=== PATIENT | female | born 1930 | race Two or more races ===

== ENCOUNTER 2017-04-06 10:50 | Inpatient (IN) | payer MEDICARE, MEDICAID ==
[~2017-04-06] VITALS: Ht 152.4 cm; Wt 51.3 kg
--- NOTE | 2017-04-06 10:55 | NUR ---
BBRA 87 FROM [facility] FOR GLF LEFT HIP FX +SHORTENING. 4 MORPHINE GIVEN IN FIELD WITH RELIEF. IV PRESENT AND INTACT ON LEFA, 20 G. PATIENT IS ALERT, BREATHING EVEN AND UNLABORED. NO SOB. VITALS STABLE. SAFETY AND COMFORT MEASURES IN PLACE. AWAITING MD ORDERS.
[2017-04-06] MEDS ORDERED: ONDANSETRON HCL/PF 4 MG/2 ML VIAL IVP ONE (11:00)
[2017-04-06] MEDS ORDERED: ONDANSETRON HCL/PF 4 MG/2 ML VIAL ONE (11:07)
[2017-04-06 11:20] LABS: BASOPHILS # (AUTO) 0.1 /CMM (0.0-0.2); BASOPHILS % (AUTO) 0.9 % (0.0-2.0); EOSINOPHILS # (AUTO) 0.2 /CMM (0.0-0.7); EOSINOPHILS % (AUTO) 2.6 % (0.0-6.0); HEMATOCRIT 40 % (33-45); HEMOGLOBIN 13.6 g/dL (11.5-14.8); MEAN CORPUSCULAR HEMOGLOBIN 32 PG (26.0-33.0); MEAN CORPUSCULAR HGB CONC 34 g/dl (31.0-36.0); MEAN CORPUSCULAR VOLUME 93 fL (82-100); MONOCYTES # (AUTO) 0.6 /CMM (0.1-1.30); NEUTROPHILS # (AUTO) 5.3 /CMM (1.8-8.9); NEUTROPHILS % (AUTO) 65.5 % (43.0-81.0); PLATELET COUNT (AUTO) 253 /CMM (150-450); RDW COEFFICIENT OF VARIATION 13.1 (11.5-15.0); WHITE BLOOD COUNT (AUTO) 8.2 K/uL (4.3-11.0)
--- NOTE | 2017-04-06 11:21 | NUR ---
CALLED NURSING SUP. FOR MS BED, SAID SHE WILL CALL ME BACK
[2017-04-06] MEDS ORDERED: METO-356 PO (11:23)
[2017-04-06] MEDS ORDERED: ERGO500014 PO (11:23)
[2017-04-06] MEDS ORDERED: AMLO5TAB2 PO (11:23)
[2017-04-06] MEDS ORDERED: ESCI20TA PO (11:23)
[2017-04-06] MEDS ORDERED: LEVO100T PO (11:23)
[2017-04-06] MEDS ORDERED: APIX2.5T PO (11:23)
[2017-04-06] MEDS ORDERED: DENO60DI IM (11:23)
[2017-04-06] MEDS ORDERED: ACET-2605 PO (11:25)
[2017-04-06] MEDS ORDERED: NITR0.4T48 SL (11:25)
[2017-04-06 11:34] LABS: CALCIUM, SERUM 8.7 mg/dL (8.5-10.1); CARBON DIOXIDE 27 mmol/L (21-32); CHLORIDE 101 mmol/L (98-107); CREATININE 0.5 mg/dL (0.6-1.3); GLUCOSE 124 mg/dL (74-106); INR 1.02 (0.85-1.15); POTASSIUM 3.5 mmol/L (3.5-5.1); SODIUM SERUM 136 mmol/L (136-145); UREA NITROGEN, BLOOD 17 mg/dL (7-18)
[2017-04-06 11:36] LABS: ALANINE AMINOTRANSFERASE 22 U/L (12-78); ALBUMIN 3.5 g/dL (3.4-5.0); ALKALINE PHOSPHATASE 77 U/L (46-116); ASPARTATE AMINOTRANSFERASE 24 U/L (15-37); BILIRUBIN,DIRECT 0.2 mg/dL (0.0-0.2); BILIRUBIN,TOTAL 0.9 mg/dL (0.2-1.0); TOTAL PROTEIN, SERUM 7.2 g/dL (6.4-8.2)
[2017-04-06 11:38] LABS: TROPONIN I < 0.017 ng/mL (0.00-0.056)
--- NOTE | 2017-04-06 11:48 | NUR ---
HUANG CATH INSERTED, URINE SENT TO LAB
--- NOTE | 2017-04-06 11:49 | NUR ---
ZEV VU, YASMEEN MORFIN OPERATION SPECIALIST
--- NOTE | 2017-04-06 11:50 | NUR ---
CALLED JOE FOR ADMISSION, SAID HE WILL COME HERE
--- NOTE | 2017-04-06 11:56 | NUR ---
MS 310-1
[2017-04-06] MEDS ORDERED: MORPHINE SULFATE INJ 2 MG/ML DISP.SYRIN IV ONE (12:00)
[2017-04-06] MEDS ORDERED: MORPHINE SULFATE INJ 4 MG/ML DISP.SYRIN ONE (12:02)
--- NOTE | 2017-04-06 12:05 | NUR ---
REPORT GIVEN TO ETHAN TEMPLE FOR MARCELLA UPON ADMISSION.
--- NOTE | 2017-04-06 12:12 | NUR ---
PATIENT REFUSED MORPHINE, DESPITE STATING SHE IS IN PAIN AT THIS TIME.
[2017-04-06 12:14] LABS: APPEARANCE,URINE Clear (CLEAR); BILIRUBIN,URINE Negative (NEGATIVE); BLOOD, URINE Trace-intact Ery/uL (NEGATIVE); COLOR,URINE Yellow (YELLOW); KETONES,URINE Negative (NEGATIVE); LEUKOCYTE ESTERASE ,URINE Negative (NEGATIVE); NITRITE, URINE Negative (NEGATIVE); PH,URINE 6.5 (5.0-8.0); PROTEIN,URINE Negative (NEGATIVE); UGLUCOSE Negative (NEGATIVE); UROBILINOGEN,URINE 0.2 EU/dL (0.2)
[2017-04-06 12:20] LABS: BACTERIA,URINE None seen /HPF (None Seen); SQUAMOUS EPITHELIAL CELL,UR Few /HPF (None Seen); WBC,URINE 0-2 /HPF (0-3)
--- NOTE | 2017-04-06 12:20 | NUR ---
PATIENT TRANSPORTED TO [facility][note 3] VIA STRETCHER. RNETHAN TO PROVIDE MARCELLA.
[2017-04-06] MEDS ORDERED: MORPHINE SULFATE INJ 2 MG/ML DISP.SYRIN IV PRN (12:30)
[2017-04-06] MEDS ORDERED: ACETAMINOPHEN 325 MG TABLET PO PRN (12:30)
[2017-04-06] MEDS ORDERED: PANTOPRAZOLE 40 MG VIAL IV SCH (12:30)
[2017-04-06] MEDS ORDERED: ENOXAPARIN SODIUM 40 MG/0.4 ML DISP.SYRIN SQ SCH (12:30)
[2017-04-06] MEDS ORDERED: MAG HYDROX/AL HYDROX/SIMETH 30 ML UDC PO PRN (12:30)
--- NOTE | 2017-04-06 12:30 | NUR ---
MSRN OPENING NOTES PT RECEIVED A&0X3 WITH DAUGHTER LYNDSAY AND SON CHAR AT BEDSIDE. PT TOLERATING ROOM AIR WITHOUT SOB. PT REPORTS NO PAIN AT THIS TIME UNLESS MOVED. PT WITH IVC AT L FA INTACT AND OPERATIONAL. ORDERS COMMENCED. PT HX PROVIDED BY PT AND DAUGHTER. BELONGINGS FORM ACCURATE. PT WITH EXISTING L SIDED WEAKNESS R/T TIA. PT BED IN LOWEST LOCKED POSITION WITH HANDRAILSX2 AND CALL BAUGH WITHIN REACH. PT WITHOUT CONCERN OR COMPLAINT AT THIS TIME. PT LEFT WITH EMT TRANSPORT. WILL CONTINUE TO MONITOR.
--- NOTE | 2017-04-06 13:00 | NUR ---
MSRN NOTES. PT REFUSING ENOXAPARIN R/T TAKING BLOOD THINNERS THIS AM. PT EDUCATION PROVIDED AND MD NOTIFIED, AWAITING RESPONSE.
[2017-04-06] MEDS: ENOXAPARIN SODIUM 60 MG/0.6 ML DISP.SYRIN SQ SCH ×3 (14:00→18:59)
[2017-04-06] MEDS: IV NS 0.9% 1,000 ML IV PRN (14:40)
--- NOTE | 2017-04-06 15:00 | NUR ---
MSRN. CORMIER REQUESTING ENOXAPARIN TIME CHANGE, ORDER PLACED. PHARMACY AWARE.
[2017-04-06 15:36] LABS: THYROID STIMULATING HORMONE 7.172 uIU/mL (0.358-3.74)
[2017-04-06 15:37] VITALS: BP 157/99
[2017-04-06 16:00] VITALS: BP 143/74
[2017-04-06 16:49] VITALS: BP 143/74
--- NOTE | 2017-04-06 18:36 | NUR ---
MSRN CLOSING NOTES. PT REMAINS A&0X3, TOLERATING ROOM AIR AND REPORTS MINOR PAIN AT REST, CURRENTLY REFUSING ANALGESIA. PT WITH IVC AT L FA INTACT AND OPERATIONAL WITH NS 75ML. BED IN LOWEST LOCKED POSITION WITH HANDRAILSX2 AND CALL BUAGH WITHIN REACH. ALL DAY NURSE DUTIES ATTENDED TO. PT WITHOUT CONCERN OR COMPLAINT AT THIS TIME. WILL ENDORSE TO NIGHT NURSE.
--- NOTE | 2017-04-06 18:47 | NUR ---
PT CONTACTS. DAUGHTER - LYNDSAY [phone]. SON - CHAR [phone].
[2017-04-06 20:00] VITALS: BP_SYST 141; BP_DIAS 76; BP_DIAS 78
--- NOTE | 2017-04-06 21:34 | NUR ---
MS RN OPENING NOTES: PATIENT IN BED, AOX3, ON ROOM AIR, BREATHING EVEN AND UNLABORED. APPEARS CALM AND IN NO DISTRESS. DENIES PAIN AT THIS TIME, BUT STATES THAT SHE FEELS PAIN OVER HER LEFT HIP ONLY WHILE MOVING. PIV OVER LFA G 20 INTACT AND PATENT, INFUSING WELL WITH NS RUNNING AT 75 ML/HR. HUANG CATHETER IN PLACE DRAINING CLEAR YELLOW URINE. PROVIDED FOR COMFORT AND SAFETY. BED IN LOWEST AND LOCKED POSITION. SIDERAILS UP X 3. WILL CONT TO MONITOR.
[2017-04-07] MEDS: IV NS 0.9% 1,000 ML IV PRN (04:46)
--- NOTE | 2017-04-07 06:41 | NUR ---
RN NOTES: ADMINISTERED MORPHINE 4 MG IV PRN FOR 8-9/10 PAIN OVER LEFT HIP AND LEFT KNEE. POSITIONED PATIENT FOR COMFORT.
[2017-04-07 06:45] LABS: BASOPHILS % (AUTO) 0.3 % (0.0-2.0); HEMATOCRIT 29 % (33-45); MEAN CORPUSCULAR HEMOGLOBIN 33 PG (26.0-33.0); MEAN CORPUSCULAR HGB CONC 35 g/dl (31.0-36.0); MEAN CORPUSCULAR VOLUME 95 fL (82-100); MONOCYTES # (AUTO) 0.8 /CMM (0.1-1.30); MONOCYTES % (AUTO) 8.3 % (2.0-12.0); NEUTROPHILS # (AUTO) 8.1 /CMM (1.8-8.9); NEUTROPHILS % (AUTO) 81.4 % (43.0-81.0); PLATELET COUNT (AUTO) 193 /CMM (150-450); RDW COEFFICIENT OF VARIATION 14.3 (11.5-15.0); RED BLOOD CELL COUNT(AUTO) 3.08 MIL/uL (4.0-5.2)
[2017-04-07 06:57] LABS: CALCIUM, SERUM 7.1 mg/dL (8.5-10.1); CARBON DIOXIDE 26 mmol/L (21-32); CHLORIDE 98 mmol/L (98-107); CREATININE 0.4 mg/dL (0.6-1.3); GLUCOSE 143 mg/dL (74-106); POTASSIUM 3.4 mmol/L (3.5-5.1); SODIUM SERUM 131 mmol/L (136-145); UREA NITROGEN, BLOOD 10 mg/dL (7-18)
[2017-04-07 06:58] LABS: MAGNESIUM 1.7 mg/dL (1.8-2.4); PHOSPHORUS 2.5 mg/dL (2.5-4.9)
--- NOTE | 2017-04-07 07:01 | NUR ---
MS RN CLOSING NOTES: PATIENT IN BED, AOX3, ON ROOM AIR, BREATHING EVEN AND UNLABORED. APPEARS CALM AND IN NO DISTRESS. DENIES PAIN WHEN NOT MOVING. PIV OVER LFA G 20 INTACT AND INFUSING WELL WITH NS RUNNING AT 75 ML/HR. PROVIDED FOR COMFORT AND SAFETY. BED IN LOWEST AND LOCKED POSITION, SIDERAILS UP X 3, CALL LIGHT WITHIN REACH. WILL ENDORSE TO AM RN FOR MARCELLA.
[2017-04-07 07:28] LABS: CHOLESTEROL 144 mg/dL (<200); HDL CHOLESTEROL 87 mg/dL (40-60); LDL 62 mg/dL (0-99); TRIGLYCERIDES 32 mg/dL (30-150)
--- NOTE | 2017-04-07 08:00 | NUR ---
MED SURG 3 RN AM NOTES RECEIVED PATIENT AWAKE AND ALERT IN BED. ALERT AND ORIENTED X 3. VITAL SIGNS STABLE, RESPIRATIONS EVEN AND UNLABORED, ON ROOM AIR WITH OXYGEN SATURATION OF 95%. LEFT FOREARM 20G INTACT AND PATENT, INFUSING 0.9NS AT 75ML/HR WITHOUT COMPLICATION. HUANG CATHETER PATENT WITH CLEAR YELLOW URINE FLOWING FREELY. PATIENT DENIES ANY PAIN OR DISTRESS. BED IN LOW POSITION WITH SIDE RAILS UP X2, CALL LIGHT WITHIN REACH.
[2017-04-07] MEDS: POTASSIUM CHLORIDE 20 MEQ TAB.PRT.SR PO SCH ×2 (08:10→09:33)
[2017-04-07] MEDS: Magnesium 1GM/D5W 100ML PREMIX 100 ML IV SCH ×2 (08:10→09:33)
[2017-04-07 08:21] LABS: THYROID STIMULATING HORMONE 1.778 uIU/mL (0.358-3.74)
[2017-04-07 08:29] LABS: IRON, SERUM 76 ug/dl (50-175); TOTAL IRON BINDING CAPACITY 300 ug/dl (250-450)
[2017-04-07 09:57] LABS: FERRITIN 30 ng/mL (8-388)
[2017-04-07] MEDS ORDERED: HYDROMORPHONE 1 MG/1 ML DISP.SYRIN IV PRN (10:30)
--- NOTE | 2017-04-07 17:21 | NUR ---
PATIENT REFUSED DINNER TRAY, STATED SHE DOESN'T LIKE THE SMELL OF THE FOOD AND IT MAKES HER NOT WANT TO EAT. I OFFERED THE PATIENT ALTERNATIVE OPTIONS FOR DINNER AND SHE CONTINUED TO REFUSE AND JUST ASKED TO HAVE THE DINNER TRAY REMOVED FROM HER ROOM SO SHE WOULD NOT HAVE TO SMELL THE FOOD ANY LONGER. PATIENT NOW RESTING IN BED. VITAL SIGNS STABLE, RESPIRATIONS EVEN AND UNLABORED. PATIENT HAS NO SIGNS OR SYMPTOMS OF DISTRESS. BED IN LOW POSITION AND LOCKED, SIDE RAILS UP X 2 AND CALL LIGHT WITHIN REACH. Addendum: 04/07/17 at 1724 by MANUEL FOSTER RN MAVERICK NOTES
--- NOTE | 2017-04-07 18:29 | NUR ---
SUPERVISOR MILL 3 CLOSING NOTE PATIENT IN BED RESTING AND EASILY AROUSED. ALERT AND ORIENTED X 3. VITAL SIGNS STABLE, RESPIRATIONS EVEN AND UNLABORED ON ROOM AIR. LEFT FOREARM 20G INTACT AND PATENT, FLUSHES EASILY, NO SIGNS OR SYMPTOMS OF COMPLICATIONS. HUANG CATHETER PATENT WITH CLEAR YELLOW URINE FLOWING FREELY. ALL NEEDS MET. NO SIGNS OR SYMPTOMS OF PAIN OR DISTRESS. BED IN LOW POSITION WITH SIDE RAILS UP X2, CALL LIGHT WITHIN REACH.
[2017-04-07] MEDS: ENOXAPARIN SODIUM 60 MG/0.6 ML DISP.SYRIN SQ SCH (18:34)
--- NOTE | 2017-04-07 19:56 | NUR ---
MS/RN OPENING NOTES PATIENT IN BED, RESTING COMFORTABLY IN BED. VERBALIZE NEEDS, REPORTED WANT TO SLEEP AND KEPT ROOM COMFORTABLE. SKIN WARM TO TOUCH, ON HUANG CATHETER, DRAINING URINE, IV ON LFA 20GAUGE, WILL MONITOR, BED IN LOCK POSITION CALL LIGHTS WITHIN REACH. WILL CONTINUE TO MONITOR.
[2017-04-07 20:00] VITALS: BP 143/71
--- NOTE | 2017-04-07 23:20 | NUR ---
MS/RN NOTES GATE GUARD MD PAN WAS CONTACTED AND REPORTED HOME MEDICATION NOT YET RECONCILED, SAID TO FOLLOW UP IN AM FOR AM RECON.
[2017-04-08] VITALS (9 sets, daily range): BP systolic 123–161; BP diastolic 62–91
--- NOTE | 2017-04-08 06:36 | NUR ---
311-1 ms/rn notes Patient in bed, able to sleep during the night, repostion for comfort, monitored for pain, able to verbalize needs. Call lights within reach, bed in lock posiotn, keep skin intact and dry. will endorse to am rn for maia.
--- NOTE | 2017-04-08 07:05 | NUR ---
RN NOTES PT IS LAYING DOWN IN BED, RESTING COMFORTABLY. PT ON RA, RESPIRATIONS ARE EVEN AND UNLABORED. IV ON LFA INTACT AND SL. SAFETY MEASURES ARE IN PLACE, CALL LIGHT IS IN REACH. WILL CONTINUE TO MONITOR.
[2017-04-08 07:23] LABS: BASOPHILS % (AUTO) 0.1 % (0.0-2.0); HEMATOCRIT 25 % (33-45); HEMOGLOBIN 8.4 g/dL (11.5-14.8); LYMPHOCYTES # (AUTO) 1.3 /CMM (0.8-4.8); LYMPHOCYTES % (AUTO) 10.6 % (20.0-44.0); MEAN CORPUSCULAR HEMOGLOBIN 33 PG (26.0-33.0); MEAN CORPUSCULAR HGB CONC 34 g/dl (31.0-36.0); MEAN CORPUSCULAR VOLUME 95 fL (82-100); MONOCYTES # (AUTO) 1.5 /CMM (0.1-1.30); MONOCYTES % (AUTO) 11.9 % (2.0-12.0); NEUTROPHILS # (AUTO) 9.7 /CMM (1.8-8.9); NEUTROPHILS % (AUTO) 77.4 % (43.0-81.0); PLATELET COUNT (AUTO) 162 /CMM (150-450); RDW COEFFICIENT OF VARIATION 14.2 (11.5-15.0); RED BLOOD CELL COUNT(AUTO) 2.59 MIL/uL (4.0-5.2); WHITE BLOOD COUNT (AUTO) 12.6 K/uL (4.3-11.0)
[2017-04-08 07:50] LABS: ALANINE AMINOTRANSFERASE 15 U/L (12-78); ALBUMIN 2.4 g/dL (3.4-5.0); ALKALINE PHOSPHATASE 47 U/L (46-116); ASPARTATE AMINOTRANSFERASE 18 U/L (15-37); BILIRUBIN,TOTAL 1.4 mg/dL (0.2-1.0); CALCIUM, SERUM 7.2 mg/dL (8.5-10.1); CARBON DIOXIDE 24 mmol/L (21-32); CHLORIDE 92 mmol/L (98-107); CREATININE 0.5 mg/dL (0.6-1.3); GLUCOSE 136 mg/dL (74-106); MAGNESIUM 1.9 mg/dL (1.8-2.4); PHOSPHORUS 1.5 mg/dL (2.5-4.9); TOTAL PROTEIN, SERUM 5.6 g/dL (6.4-8.2); UREA NITROGEN, BLOOD 11 mg/dL (7-18)
[2017-04-08 08:16] LABS: POTASSIUM 3.9 mmol/L (3.5-5.1)
[2017-04-08 08:46] LABS: SODIUM SERUM 123 mmol/L (136-145)
[2017-04-08] MEDS ORDERED: SODIUM CHLORIDE 1000 MG TABLET.SOL PO ONE (10:00)
[2017-04-08] MEDS ORDERED: IV NS 0.9% 1,000 ML IV PRN ×2 (10:00→11:00)
[2017-04-08] MEDS: MAGNESIUM HYDROXIDE 30 ML UDC PO PRN (10:42)
[2017-04-08] MEDS ORDERED: K PHOS NEUTRAL 250 MG TABLET PO ONE (13:00)
--- NOTE | 2017-04-08 13:15 | NUR ---
RN NOTES HGB DROPPED FROM 13.6 TO 8.4 WITHIN 48 HOURS, MD SUSPECTS POSSIBLE BLEED DUE TO HIP FRACTURE. 1 UNIT OF BLOOD TRANSFUSING NOW, PRIOR TO SURGERY TOMORROW. VITAL SIGNS ARE WNL, NO SIGNS OF REACTION TO BLOOD.
[2017-04-08 18:12] LABS: HEMOGLOBIN 10.4 g/dL (11.5-14.8)
--- NOTE | 2017-04-08 18:38 | NUR ---
RN NOTES PT IS RESTING IN BED COMFORTABLY. IV ON LFA AND RFA INTACT AND SL. BLOOD TRANSFUSION GIVEN ORDERED WITH NO REACTION, H/H REDRAWN. VITAL SIGNS ARE WNL, NO SIGNS OF DISTRESS NOTED. HUANG CATHETER IS INTACT AND DRAINING, 700ML OUTPUT. SAFETY MEASURES ARE IN PLACE, CALL LIGHT IS IN REACH. WILL ENDORSE TO CARTON STAPLER RN FOR CONTINUITY OF CARE.
[2017-04-08] MEDS: ENOXAPARIN SODIUM 60 MG/0.6 ML DISP.SYRIN SQ SCH (19:00)
--- NOTE | 2017-04-08 19:34 | NUR ---
Ms/rn opening notes Patient in bed, awake, able to verbalize needs, nopain, resting comfortably in bed, skin warm to touch , on room air, call lights within reach, bed in lock position, attend to needs, will keep comfortable, will continue to monitor, iv fluids running on rfa at 75ml/hr, iv site on right and left forearm, with no s/s ooi infiltration,
--- NOTE | 2017-04-08 20:27 | NUR ---
Ms/Rn notes Per md order last 04/08/17 recent progress note to hold hcristina heath rn informed communicated .
[2017-04-09] VITALS (8 sets, daily range): BP systolic 132–148; BP diastolic 73–89
[2017-04-09 06:52] LABS: BASOPHILS % (AUTO) 0.1 % (0.0-2.0); EOSINOPHILS % (AUTO) 0.1 % (0.0-6.0); HEMATOCRIT 31 % (33-45); HEMOGLOBIN 10.6 g/dL (11.5-14.8); LYMPHOCYTES # (AUTO) 1.3 /CMM (0.8-4.8); LYMPHOCYTES % (AUTO) 10.4 % (20.0-44.0); MEAN CORPUSCULAR HEMOGLOBIN 33 PG (26.0-33.0); MEAN CORPUSCULAR HGB CONC 35 g/dl (31.0-36.0); MEAN CORPUSCULAR VOLUME 94 fL (82-100); MONOCYTES # (AUTO) 1.3 /CMM (0.1-1.30); MONOCYTES % (AUTO) 10.8 % (2.0-12.0); NEUTROPHILS # (AUTO) 9.5 /CMM (1.8-8.9); NEUTROPHILS % (AUTO) 78.6 % (43.0-81.0); PLATELET COUNT (AUTO) 158 /CMM (150-450); RDW COEFFICIENT OF VARIATION 14.3 (11.5-15.0); RED BLOOD CELL COUNT(AUTO) 3.25 MIL/uL (4.0-5.2); WHITE BLOOD COUNT (AUTO) 12.1 K/uL (4.3-11.0)
--- NOTE | 2017-04-09 06:57 | NUR ---
MS/rn notes Patient in bed, assisted for comfort, able to verbalize needs, coopertaive to care, on npo after mn for surgery, skin warm to touch, call lights within reach, will continue to monitor. Call lights within reach, bed in lock position, Iv sites on bilateraal foream, patent.bed in lock position. Will endorse with am rn for maia.
[2017-04-09 07:11] LABS: INR 0.93 (0.87-1.13)
[2017-04-09 07:29] LABS: CALCIUM, SERUM 6.9 mg/dL (8.5-10.1); CARBON DIOXIDE 24 mmol/L (21-32); CHLORIDE 89 mmol/L (98-107); CREATININE 0.3 mg/dL (0.6-1.3); GLUCOSE 111 mg/dL (74-106); PHOSPHORUS 1.6 mg/dL (2.5-4.9); POTASSIUM 3.6 mmol/L (3.5-5.1); SODIUM SERUM 122 mmol/L (136-145); UREA NITROGEN, BLOOD 6 mg/dL (7-18)
--- NOTE | 2017-04-09 08:00 | NUR ---
MSRN OPENING NOTES. PT RECEIVED A&0X3. PT TOLERATING ROOM AIR WITHOUT SOB AND SAO2 WNL. PT DENIES PAIN. PT SURGERY CANCELLED R/T LAB VALUES. PT REMOVED FROM NPO AND CONTINUED ON MD MARY LOU TO ORDER REPLACEMENTS. PT WITH IVCX2, L FA G#20 AND R FA G#20 BOTH INTACT AND SALINE FLUSH PATENT. PT BRIEFED ON TODAY'S POC AND PT IS WITHOUT CONCERN OR COMPLIANT AT THIS TIME.
[2017-04-09] MEDS ORDERED: NEUTRA PHOS 1 POWD.PACKET PO ONE (08:30)
[2017-04-09 09:09] LABS: IRON, SERUM 27 ug/dl (50-175); TOTAL IRON BINDING CAPACITY 261 ug/dl (250-450)
[2017-04-09] MEDS: ONDANSETRON HCL/PF 4 MG/2 ML VIAL IVP PRN ×2 (09:10→15:29)
[2017-04-09] MEDS ORDERED: Calcium Gluconate 1GM/10ML 4.65 MEQ in IV NS 0.9% 50 ML IV ONE (13:30)
[2017-04-09] MEDS: SODIUM CHLORIDE 1000 MG TABLET.SOL PO SCH ×2 (14:12→17:28)
[2017-04-09] MEDS: MAGNESIUM HYDROXIDE 30 ML UDC PO PRN (15:38)
--- NOTE | 2017-04-09 19:04 | NUR ---
MSRN OPENING NOTES. PT REMAINS A&0X3 WITH FAMILY AT BEDSIDE. PT TOLERATING ROOM AIR WITHOUT SOB AND SAO2 WNL. PT DENIES PAIN. PT WITH IVCX2, L FA G#20 AND R FA G#20 BOTH INTACT AND SL. BED IN LOWEST LOCKED POSITION WITH HANDRAILSX4 AND CALL BAUGH WITHIN REACH. ALL DAY NURSE DUTIES ATTENDED TO PT IS WITHOUT CONCERN OR COMPLAINT AT THIS TIME. WILL ENDORSE TO NIGHT NURSE. Addendum: 04/09/17 at 1910 by ETHAN VUONG RN MSRN CLOSING NOTES.
--- NOTE | 2017-04-09 19:09 | NUR ---
MSRN NOTES. PT TO BE NPO FROM MIDNIGHT PER MD PEARL.
--- NOTE | 2017-04-09 19:35 | NUR ---
MS RN OPENING NOTES RECEIVED PT IN BED ALERT, AWAKE, VERBALLY RESPONSIVE, ON ROOM AIR, RESPIRATIONS EVEN, UNLABORED, NO APPARENT DISTRESS NOTED.DENIES ANY PAIN OR DISCOMFORT AT THIS TIME. CALL LIGHT WITHIN REACH,ATTENDED ALL NEEDS. WILL CONTINUE TO MONITOR ACCORDINGLY.
[2017-04-09] MEDS: ENOXAPARIN SODIUM 60 MG/0.6 ML DISP.SYRIN SQ SCH (19:45)
--- NOTE | 2017-04-09 23:58 | NUR ---
MS RN NOTES PT IN BED, RESTING COMFORTABLY, NO APPARENT DISTRESS NOTED, CALL LIGHT WITHIN REACH. ATTENDED ALL NEEDS. WILL CONTINUE TO MONITOR ACCORDINGLY.TRANSFERRED CARE TO [facility].
--- NOTE | 2017-04-10 | NUR ---
BAND SAWMILL OPERATOR/ INITIAL NOTES SEEN PT IN BED RESTING COMFORTABLY AT THIS TIME, BREATHING EVEN AND NON-LABORED, NOT IN ANY ACUTE DISTRESS NOTED. KEPT HER WARM AND COMFORTABLE AT ALL TIMES. PLACE CALL LIGHT AT REACH. WILL CONTINUE TO MONITOR.
--- NOTE | 2017-04-10 05:24 | NUR ---
MS DHARMESH NOTES SEEN PT WOKE UP , DENIES ANY PAIN OR ANY DISCOMFORT. HUANG DRAINING WELL, SHE ONLY REQUESTED SHE WANTS A FEMALE CYBER SYSTEMS OPERATIONS SPECIALIST TO CLEAN HER IF SHE NEEDS IT. I TOLD HER ITS OK EVEN ME I CAN HELP HELP HER. SHE SMILED AND SAID"THANK YOU ". KEPT HER WARM AND COMFORTABLE AT ALL TIMES. PLACE CALL LIGHT AT REACH.
[2017-04-10 06:46] LABS: BASOPHILS % (AUTO) 0.3 % (0.0-2.0); EOSINOPHILS % (AUTO) 0.4 % (0.0-6.0); HEMATOCRIT 33 % (33-45); HEMOGLOBIN 11.3 g/dL (11.5-14.8); LYMPHOCYTES # (AUTO) 1.2 /CMM (0.8-4.8); LYMPHOCYTES % (AUTO) 11.5 % (20.0-44.0); MEAN CORPUSCULAR HEMOGLOBIN 33 PG (26.0-33.0); MEAN CORPUSCULAR HGB CONC 35 g/dl (31.0-36.0); MEAN CORPUSCULAR VOLUME 94 fL (82-100); MONOCYTES % (AUTO) 9.3 % (2.0-12.0); NEUTROPHILS # (AUTO) 8.1 /CMM (1.8-8.9); NEUTROPHILS % (AUTO) 78.5 % (43.0-81.0); PLATELET COUNT (AUTO) 241 /CMM (150-450); RDW COEFFICIENT OF VARIATION 14.4 (11.5-15.0); RED BLOOD CELL COUNT(AUTO) 3.45 MIL/uL (4.0-5.2); WHITE BLOOD COUNT (AUTO) 10.4 K/uL (4.3-11.0)
[2017-04-10 06:54] LABS: OSMOLALITY,SERUM 264 mOS/kg (278-305)
[2017-04-10 07:09] LABS: CALCIUM, SERUM 7.6 mg/dL (8.5-10.1); CARBON DIOXIDE 28 mmol/L (21-32); CHLORIDE 94 mmol/L (98-107); CREATININE 0.4 mg/dL (0.6-1.3); GLUCOSE 105 mg/dL (74-106); MAGNESIUM 2.4 mg/dL (1.8-2.4); PHOSPHORUS 1.5 mg/dL (2.5-4.9); POTASSIUM 3.8 mmol/L (3.5-5.1); SODIUM SERUM 129 mmol/L (136-145); UREA NITROGEN, BLOOD 8 mg/dL (7-18)
--- NOTE | 2017-04-10 07:09 | NUR ---
MS HEALTH INFORMATION CLERK CLOSING NOTES PT BACK TO REST AFTER MORNING CARE DONE WITH THE HELPED OF LEAD CONSULTANT . REPOSITION HER FOR COMFORT. HUANG TO GRAVITY. SLEPT WELL AND STABLE EVE THE NIGHT. PT AWARE THAT SHE'S NPO FOR POSSIBLE SURGERY IF THE RESULT OF HER BLOOD TEST WITHIN NORMAL LIMIT. KEPT HER WARM AND COMFORTABLE AT ALL TIMES. SAFETY PRECAUTION APPLIED AND PLACE CALL LIGHT AT REACH. ENDORSE TO AM NURSE FOR CONTINUITY OF CARE.
--- NOTE | 2017-04-10 07:10 | NUR ---
ms rn initial notes Received patient in bed, awake, head of bed elevated, no SOB or distress noted, on room air with 02 sat of 100%. Webb in placed attached to drainage bag. IV intact and patent. NPO at this time due to possible procedure today. No facial grimace noted. Kept patient clean and comfortable in bed, call light with in patient reach, will continue to monitor accordingly.
[2017-04-10 08:00] VITALS: BP 137/79
[2017-04-10] MEDS: Magnesium 1GM/D5W 100ML PREMIX 100 ML IV SCH ×2 (08:25→09:47)
[2017-04-10] MEDS: SODIUM CHLORIDE 1000 MG TABLET.SOL PO SCH ×2 (09:00→16:22)
[2017-04-10] MEDS ORDERED: IV NS 0.9% 1,000 ML IV PRN (12:30)
[2017-04-10] MEDS ORDERED: POTASSIUM PHOSPHATE MM 7.5 MMOL in IV D5W 100 ML IV SCH (14:00)
[2017-04-10 16:00] VITALS: BP 139/73
[2017-04-10] MEDS: ENOXAPARIN SODIUM 60 MG/0.6 ML DISP.SYRIN SQ SCH (16:34)
--- NOTE | 2017-04-10 19:16 | NUR ---
ms rn closing notes All needs provided, attended, and anticipated. Kept patient clean and comfortable in bed, call light with in patient reach, endorsed to next shift RN to continue care.
--- NOTE | 2017-04-10 19:27 | NUR ---
MS RN INITIAL NOTES RECEIVED PT IN BED RESTING COMFORTABLY AT THIS TIME, DTR @ BEDSIDE. DENIED ANY PAIN, BREATHING EVEN AND NON-LABORED, NOT IN ANY ACUTE DISTRESS NOTED. HUANG CATH IN PLACE DRAINING YELLOW CLEAR URINE. IV ACCESS TO LFA, INTACT PATENT. RFA, INTACT PATENT, RUNNING WITH NS @ 60 ML/HR. WILL BE NPO AFTER MIDNIGHT FOR SCHEDULED LEFT HIP ARTHROPLASTY. PLACE CALL LIGHT AT REACH. BED IN LOW LOCKED POSITION.WILL CONTINUE TO MONITOR.
[2017-04-10 20:00] VITALS: BP 129/77
[2017-04-11 03:34] LABS: BASOPHILS % (AUTO) 0.1 % (0.0-2.0); EOSINOPHILS # (AUTO) 0.1 /CMM (0.0-0.7); EOSINOPHILS % (AUTO) 1.3 % (0.0-6.0); HEMATOCRIT 29 % (33-45); HEMOGLOBIN 9.9 g/dL (11.5-14.8); MEAN CORPUSCULAR HEMOGLOBIN 32 PG (26.0-33.0); MEAN CORPUSCULAR HGB CONC 34 g/dl (31.0-36.0); MEAN CORPUSCULAR VOLUME 95 fL (82-100); MONOCYTES # (AUTO) 0.9 /CMM (0.1-1.30); MONOCYTES % (AUTO) 9.9 % (2.0-12.0); NEUTROPHILS # (AUTO) 6.6 /CMM (1.8-8.9); NEUTROPHILS % (AUTO) 76.7 % (43.0-81.0); PLATELET COUNT (AUTO) 251 /CMM (150-450); RDW COEFFICIENT OF VARIATION 14.4 (11.5-15.0); RED BLOOD CELL COUNT(AUTO) 3.05 MIL/uL (4.0-5.2); WHITE BLOOD COUNT (AUTO) 8.6 K/uL (4.3-11.0)
[2017-04-11 03:42] LABS: CALCIUM, SERUM 6.9 mg/dL (8.5-10.1); CARBON DIOXIDE 26 mmol/L (21-32); CHLORIDE 98 mmol/L (98-107); CREATININE 0.4 mg/dL (0.6-1.3); GLUCOSE 109 mg/dL (74-106); POTASSIUM 4.1 mmol/L (3.5-5.1); SODIUM SERUM 131 mmol/L (136-145); UREA NITROGEN, BLOOD 9 mg/dL (7-18)
[2017-04-11 03:44] LABS: INR 0.91 (0.87-1.13)
--- NOTE | 2017-04-11 04:10 | NUR ---
MS RN NOTES PATIENT NOTED TO BE SLEEPING COMFORTABLY @ THIS TIME. NO C/O LEFT HIP PAIN VERBALIZED . MONITORING CLOSELY.
[2017-04-11] MEDS ORDERED: BUPIVACAINE 0.5 % PF 150 MG/30 ML VIAL ONE (05:22)
[2017-04-11] MEDS ORDERED: BACITRACIN 50000 UNITS/VIAL ONE (05:22)
[2017-04-11] MEDS ORDERED: ANESTHESIA TRAY IN PYXIS 1 EA TRAY MC ONE (05:22)
--- NOTE | 2017-04-11 05:42 | NUR ---
TRANSFERRED PT TO OR PATIENT WAS TAKEN TO OR VIA BED WITH SAFETY BY OR STAFF. ALL CONSENT WAS SIGNED REQUIRED FOR SURGERY. STABLE CONDITION. VITALS ARE 133/78, 92, 20, 98.1, 97 %. NO C/O PAIN, SMILING & TALKATIVE @ THIS TIME. WILL F/U WITH OR.
--- NOTE | 2017-04-11 07:30 | NUR ---
MS/RN NOTE PATIENT STILL IN OR.
[2017-04-11 08:00] VITALS: BP 135/87
--- NOTE | 2017-04-11 08:45 | NUR ---
MS/RN PATIENT BACK FROM OR PATIENT IS BACK OR ON A GURNEY. ALERT AND ORIENTED X2. RESPIRATION REGULAR AND UNLABORED. DENIES SOB, PAIN AT THIS TIME. IN NO APPARENT DISTRESS. LFA G 20 AND RFA G 20 PATENT. IV INFUSING WITH NO S/S INFILTRATION. THE PATIENT STABLE. BED LOW AND LOCKED. SIDE RAILS UP X3. CALL LIGHT WITHIN REACH. WILL CONTINUE TO MONITOR.
[2017-04-11] MEDS: SODIUM CHLORIDE 1000 MG TABLET.SOL PO SCH ×2 (10:35→17:36)
--- NOTE | 2017-04-11 10:55 | NUR ---
MS/RN DIET ORDER OBTAINED VERBAL DIET ORDER FROM [facility]. THE ORDER READ BACK, VERIFIED. NOTED AND CARRIED OUT.
[2017-04-11] MEDS ORDERED: TRAMADOL HCL 50 MG TABLET PO PRN (11:00)
[2017-04-11] MEDS ORDERED: MORPHINE SULFATE INJ 4 MG/ML DISP.SYRIN IV PRN (11:00)
[2017-04-11] MEDS: ACETAMINOPHEN 325 MG TABLET PO SCH ×2 (11:42→17:41)
--- NOTE | 2017-04-11 11:43 | NUR ---
MS/RN MED REFUSED PATIENT REFUSED TYLENOL 650 MG. EXPLAINED RISKS AND BENEFITS BUT PATIENT STILL REFUSED. PATIENT DENIES PAIN AT THIS TIME.
[2017-04-11] MEDS: CEFAZOLIN SODIUM 2 GM in IV SODIUM CHLORIDE 0.9% 50 ML IV SCH ×2 (13:35→21:06)
[2017-04-11 16:00] VITALS: BP 130/80
--- NOTE | 2017-04-11 18:30 | NUR ---
MS/RN CLOSING NOTE PATIENT ALERT AND ORIENTED X3. DENIES SOB, PAIN. RESPIRATION REGULAR AND UNLABORED. PEDAL PULSES PRESENT. BED LOW AND LOCKED. SIDE RAILS UP X3. CALL LIGHT WITHIN REACH. WILL ENDORSE TO NIGH SHIFT.
--- NOTE | 2017-04-11 18:30 | NUR ---
MS/RN NOTE RECEIVED CALL FROM PHARM THAT THE PATIENT`S POST-OP ELIQUIS ORDER CANNOT BE CARRIED OUT BECAUSE THE MED RECON IS NOT DONE. LEFT MSG TO [place] BUT NO CALL BACK. THE PATIENT CURRENTLY ON LOVENOX. UPCOMING SHIFT IS ENDORSE TO FOLLOW UP
[2017-04-11 19:37] LABS: OSMOLALITY,URINE 690 mOS/kg (340-1090)
[2017-04-11 19:46] LABS: URINE SODIUM, RANDOM < 5 mmol/l (40-220)
--- NOTE | 2017-04-11 19:55 | NUR ---
MS/CASTING AND CURING OPERATOR; RECEIVED PT IN BED AWAKE, ALERT AND VERBALLY RESPONSIVE. BREATHING NON LABORED. HL INTACT . WITH FC INTACT WITH 30 ML YELLOW URINE COLOR. WITH DVT PUMP ON LOWER RT LEG. LT HIP INCISION WITH DRESSINGS ON THE MIDDLE 2X2 DRESSING WITH SOME RED DRAINAGE . DENIES PAIN. BED ON LOWER POSITION AND LOCKED FOR SAFETY. SIDE RAILS ARE UP FOR SAFETY. CONTINUE TO MONITOR . CALL LIGHT WITHIN REACH.
[2017-04-11 20:00] VITALS: BP 116/76
--- NOTE | 2017-04-11 21:15 | NUR ---
MS/RESIDENT SURGEON; I PLACED A CALL TO [facility] CUSTOMS DIRECTOR I SPOKE TO MARILIN TANNER NP I NOTIFIED HER IF IT IS OK TO RESUMED THE LOVENOX PT HAS SURGERY THIS MORNING AND SHE SAID OK TO RESUME AND I ALSO INFORMED THE CHARGE NURSE TAY.
[2017-04-11] MEDS: ENOXAPARIN SODIUM 60 MG/0.6 ML DISP.SYRIN SQ SCH (21:49)
[2017-04-12] MEDS: MAGNESIUM HYDROXIDE 30 ML UDC PO PRN (00:29)
--- NOTE | 2017-04-12 00:30 | NUR ---
MS/PURSE MAKER; MOM 30 ML PO HS PRN GIVEN AT 0029
[2017-04-12] MEDS: CEFAZOLIN SODIUM 2 GM in IV SODIUM CHLORIDE 0.9% 50 ML IV SCH (04:11)
[2017-04-12] MEDS: ACETAMINOPHEN 325 MG TABLET PO SCH ×4 (06:00→18:00)
--- NOTE | 2017-04-12 06:30 | NUR ---
MS/DHARMESH; I ASKED PT ABOUT HER TYLENOL STILL REFUSED AND SHE ALSO SHE IS NOT IN PAIN.
--- NOTE | 2017-04-12 06:38 | NUR ---
MS/SANDWICH BOARD CARRIER; PT SLEPT FAIRLY LAST NIGHT. NO BM FC WITH 600 ML OUTPUT YELLOW URINE. AM CARE DONE BY PEG. REPOSITIONED. CONTINUE TO MONITOR. CALL LIGHT WITHIN REACH. WILL ENDORSE TO THE DAY SHIFT NURSE.
--- NOTE | 2017-04-12 07:20 | NUR ---
MS/RN OPENING NOTE RECEIVED PATIENT IN BED AWAKE. ALERT AND ORIENTED X3. DENIES SOB, PAIN AT THIS TIME. BREATHING REGULAR AND UNLABORED. IN NO APPARENT DISTRESS. LFA G 20 AND RFA G 20 PATENT AND SALINE LOCKED. LEFT HIP INCISION WITH DRESSING INTACT WITH MINIMAL RED DRAINAGE. PEDAL PULSES PRESENT. BED LOW AND LOCKED. SIDE RAILS UP X3. CALL LIGHT WITHIN REACH. WILL CONTINUE TO MONITOR.
[2017-04-12 08:00] VITALS: BP 119/78
[2017-04-12] MEDS: SODIUM CHLORIDE 1000 MG TABLET.SOL PO SCH ×2 (09:19→17:20)
[2017-04-12] MEDS ORDERED: ENOX60DI SQ (10:23)
[2017-04-12] MEDS ORDERED: SODI100010 PO (10:23)
[2017-04-12] MEDS ORDERED: APIXABAN 5 MG TABLET PO SCH (10:30)
[2017-04-12] MEDS ORDERED: APIXABAN 2.5 MG TABLET PO SCH (10:43)
--- NOTE | 2017-04-12 11:20 | NUR ---
MS/RN NOTE ELIQUIS 2.5MG DUE AT 1043 NOTE ADMINISTERED DUE TO PHARN HAS NOT DELIVERED IT YET. WILL ADMINISTER ONCE THE MEDICATION IS DELIVERED.
[2017-04-12] MEDS ORDERED: APIX2.5T PO (13:58)
[2017-04-12 16:00] VITALS: BP 124/63
--- NOTE | 2017-04-12 18:30 | NUR ---
MS/RN NOTE ELIQUIS 2.5 MG STILL NOT DELIVERED FROM THE PHARM DESPITE MULTIPLE TIMES CALLING AND TALKING TO CARL. UPCOMING SHIFT WILL BE ENDORSED TO FOLLOW UP.
--- NOTE | 2017-04-12 19:09 | NUR ---
MS/RN CLOSING NOTE PATIENT IN BED AWAKE. ALERT AND ORIENTED X3. DENIES SOB, PAIN. IN NO APPARENT DISTRESS. REFUSED ROUTINE TYLENOL DURING THE SHIFT DESPITE EXPLAINING RISKS AND BENEFITS. PATIENT STABLE. NO BLADDER DISTENSION NOTED. LFA G20 AND RFA G 20 PATENT. GOOD SKIN CARE RENDERED. ALL NEEDS ATTENDED. BED LOW AND LOCKED. SIDE RAILS UP X3. CALL LIGHT WITHIN REACH. WILL ENDORSE TO [facility] SHIFT.
[2017-04-12 20:00] VITALS: BP 143/76
--- NOTE | 2017-04-12 20:00 | NUR ---
MS/LOCOMOTIVE CRANE ENGINEER; RECEIVED PT IN BED AWAKE, ALERT AND ORIENTED. DENIES PAIN. BREATHING NON LABORED.HL INTACT ON LFA. LT HIP DRESSING INTACT. NO VOIDING YET AT THIS TIME. BED ON LOWER POSITION AND LOCKED FOR SAFETY. SIDE RAILS UPPER PART OF BED ARE UP FOR SAFETY. PT INSTRUCTED TO CALL FOR HELP AND CALL LIGHT WITHIN REACH.
[2017-04-12] MEDS: APIXABAN 2.5 MG TABLET PO SCH (20:54)
--- NOTE | 2017-04-12 20:55 | NUR ---
MS/DIMENSION MILL WORKER; PT IS SO ANXIOUS ABOUT HER BLOOD THINNER PO MED. I EXPLAINED TO THE PT ABOUT IT. SO ELIQUIS 2.5 MG PO BID GIVEN AT 2053. PT ENCOURAGED TO DRINK MORE FLUIDS SO SHE VOID. NO VOIDING YET.
--- NOTE | 2017-04-12 22:00 | NUR ---
MS/LITHOGRAPHER APPRENTICE; PT'S DAUGHTER DAVE CALLED INQUIRING ABOUT THE PT'S CONDITION I TOLD HER THAT HER MOM IS ANXIOUS ABOUT HER BLOOD THINNER ME. SHE SAID SHE IS COMING TOMORROW.
--- NOTE | 2017-04-13 | NUR ---
MS/BULK DRIVER; PT IN BED SLEEPING. BREATHING NON LABORED. TYLENOL 650 MG PO Q6 ROUTINE NOT GIVEN .
[2017-04-13] MEDS: ACETAMINOPHEN 325 MG TABLET PO SCH ×2 (06:00)
--- NOTE | 2017-04-13 06:39 | NUR ---
MS/E COMMERCE MARKETING MANAGER; PT VOIDEDX2 LOT AMOUNT YELLOW COLOR PER ADVERTISING CAMPAIGN MANAGER. PERINEAL CARE DONE. PT SLEPT AT GOOD INTERVALS LAST NIGHT. UNABLE TO GIVE TYLENOL 650 MG PO PT IS SLEEPING. CONTINUE TO MONITOR. CALL LIGHT WITHIN REACH. WILL ENDORSE TO THE DAY SHIFT NURSE.
--- NOTE | 2017-04-13 06:56 | NUR ---
MS/RUG CUTTER HELPER; PT HAS BEEN TELLING ME LAST NIGHT THAT SHE IS NOT TAKING TYLENOL PO.
[2017-04-13] MEDS: APIXABAN 2.5 MG TABLET PO SCH (07:47)
--- NOTE | 2017-04-13 08:00 | NUR ---
m/s business controller: initial assessment received pt in bed awake, alert, and oriented x3 with forgetfulness. reality orientation provided prn. s/p left hip im rodding. dressing intact, clean, and dry. instructed to call for assistance. will continue to monitor.
[2017-04-13] MEDS: SODIUM CHLORIDE 1000 MG TABLET.SOL PO SCH (08:25)
[2017-04-13 08:30] VITALS: BP 133/77
--- NOTE | 2017-04-13 09:20 | NUR ---
m/s manager inspection: notes dressing change to left hip; incision with kieran intact with no s/s of infection. dr. padilla at bedside with stat duplex to louis lower ext order. order read back and carried out and acknowledged.
--- NOTE | 2017-04-13 09:45 | NUR ---
m/s clerical stock inspector: notes duplex venous to louis lower ext's negative for dvt per card tech preliminary report. dr. em made aware.
--- NOTE | 2017-04-13 10:00 | NUR ---
m/s manager environmental health and safety: notes daughter here and discharged instructions given to daughter and verbalized understanding. awaiting for ambulance to pick her up.
--- NOTE | 2017-04-13 10:25 | NUR ---
m/s real estate transaction coordinator: md visit seen and examined by dr. em at this time. daughter remains at bedside. all questions and concerns answered by dr. em. h/l removed with tip intact with no swelling, no redness, and no bleeding noted.
--- NOTE | 2017-04-13 11:15 | NUR ---
m/s architectural draftsperson: discharged discharged to [facility] in stable condition accompanied by 2 ambulance crew with d'c papers.
== END 2017-04-13 11:15 | DRG 481 ==
LOC: ER 10:51 → MED 12:03
PROVIDERS: ADMIT Nurse Practitioner Acute Care; ATTEND Nurse Practitioner Acute Care
PROC: 30233N1 Transfusion of Nonautologous Red Blood Cells into Peripheral Vein, Percutaneous Approach (ICD-10-PCS; 2017-04-08)
PROC: 0QS704Z Reposition Left Upper Femur with Internal Fixation Device, Open Approach (ICD-10-PCS; principal; 2017-04-11 06:00)
DX: S72.142A Displaced intertrochanteric fracture of left femur, initial encounter for closed fracture (principal); I69.354 Hemiplegia and hemiparesis following cerebral infarction affecting left non-dominant side; D68.59 Other primary thrombophilia; E22.2 Syndrome of inappropriate secretion of antidiuretic hormone; I48.91 Unspecified atrial fibrillation; E83.51 Hypocalcemia; Y92.10 Unspecified residential institution as the place of occurrence of the external cause; W18.30XA Fall on same level, unspecified, initial encounter; Z79.01 Long term (current) use of anticoagulants; M81.0 Age-related osteoporosis without current pathological fracture; I70.0 Atherosclerosis of aorta; E87.6 Hypokalemia; E03.9 Hypothyroidism, unspecified; F32.9 Major depressive disorder, single episode, unspecified; E11.9 Type 2 diabetes mellitus without complications; I10 Essential (primary) hypertension; D72.829 Elevated white blood cell count, unspecified; D63.8 Anemia in other chronic diseases classified elsewhere
CPT/HCPCS: 36415; 71045-TC; 73020; 73502; 73564-TC; 73700-TC; 80048-TC; 80053-TC; 80061-TC; 80076-TC; 81000-TC; 82272-TC; 82306; 82728-TC; 83540-TC; 83735-TC; 83935-TC; 84100-TC; 84300-TC; 84439-TC; 84443-TC; 84484-TC; 85025-TC; 85027-TC; 85610-TC; 85652-TC; 85730-TC; 86850-TC; 86921-TC; 87081-TC; 87086-TC; 93307-TC; 93970-TC; A4216; A4606; A6209; A6402; C1713; C9113; J0610; J0690; J1100; J1650; J1885; J2270; J2405; J3475; J3490; J7030; J7050; J7060; P9016-BL; Z7610